=== PATIENT | male | born 1965 | race Two or more races ===

== ENCOUNTER 2020-12-26 13:08 | Outpatient (CLI) | payer MEDICAID ==
[2020-12-26 13:30] VITALS: BP 182/92
--- NOTE | 2020-12-26 19:29 | Consultation ---
DATE OF CONSULTATION: 12/26/2020 GASTROENTEROLOGY CONSULTATION CONSULTING PHYSICIAN: Slade Parrish MD. CHIEF COMPLAINT: Referral for constipation. PAST MEDICAL HISTORY: 1. GERD. 2. End-stage renal disease, on hemodialysis. 3. Coronary artery disease and [place]. 4. Hypercholesterolemia. 5. Asthma. 6. Hypertension. ALLERGIES: No known allergies. MEDICATIONS: Please see medication reconciliation list. SOCIAL HISTORY: The patient denies any tobacco, alcohol, or drug abuse. FAMILY HISTORY: No family history of GI malignancies. REVIEW OF SYSTEMS: Last colonoscopy was a year ago and according to the patient is negative. PHYSICAL EXAMINATION: VITAL SIGNS: Temperature 97.4, blood pressure 182/92, pulse 86 ,respirations 20. HEENT: Normocephalic and atraumatic. Sclerae are anicteric. NECK: Supple. No evidence of obvious lymphadenopathy. CARDIOVASCULAR: Regular rate and rhythm. Plus S1-S2. LUNGS: Decreased breath sounds bilaterally based on the supine exam. ABDOMEN: Soft, nontender. No rebound. No guarding. No peritoneal sign. EXTREMITIES: No cyanosis, no clubbing, no edema. ASSESSMENT AND PLAN: This is a 55-year-old male with chronic constipation, not responding to medication including Colace, MiraLAX. According to the patient, he has hard time having a bowel movement and makes him very uncomfortable. The patient had a colonoscopy according to him about a year ago, which we do not have the report and according to him everything was normal. Our plan will be to start the patient on Trulance 3 mg p.o. daily. The patient was given a prescription and also . The patient was told to bring the copy of his colonoscopy from the he has done and come back in a month or 2 for followup. Slade Parrish M.D. DR: SHARIF JOB#: [id number] CC:
[2020-12-30] MEDS ORDERED: LABETALOL HCL200 MG ORAL (12:27)
[2020-12-30] MEDS ORDERED: ADALAT CC30 MG ORAL (12:27)
[2020-12-30] MEDS ORDERED: TERBINAFINE HC250 MG PO (12:27)
[2020-12-30] MEDS ORDERED: CLONIDINE HCL0.1 MG PO (12:27)
[2020-12-30] MEDS ORDERED: CALCITRIOL0.25 MCG PO (12:27)
[2020-12-30] MEDS ORDERED: LACTULOSE20 GM/301 ORAL (12:27)
[2020-12-30] MEDS ORDERED: DOK100 M1 PO (12:27)
[2020-12-30] MEDS ORDERED: ASPIRIN EC81 MG ORAL (12:27)
[2020-12-30] MEDS ORDERED: ISOSORBIDE MONO60 M1 PO (12:27)
[2020-12-30] MEDS ORDERED: ATORVASTATIN CA40 MG ORAL (12:27)
[2020-12-30] MEDS ORDERED: LOSARTAN POTASS50 MG ORAL (12:27)
[2020-12-30] MEDS ORDERED: CALCIUM 500 +1 EAC3 PO (12:27)
[2020-12-30] MEDS ORDERED: TRAZODONE HCL50 MG ORAL (12:27)
[2020-12-30] MEDS ORDERED: PANTOPRAZOLE SO40 MG ORAL (12:27)
== END 2020-12-26 15:08 | disposition home or self-care (01) ==
LOC: PAN 13:08
DX: K59.09 Other constipation (principal); K21.9 Gastro-esophageal reflux disease without esophagitis; I12.0 Hypertensive chronic kidney disease with stage 5 chronic kidney disease or end stage renal disease; N18.6 End stage renal disease; Z99.2 Dependence on renal dialysis; I25.10 Atherosclerotic heart disease of native coronary artery without angina pectoris; I25.2 Old myocardial infarction; E78.00 Pure hypercholesterolemia, unspecified; J45.909 Unspecified asthma, uncomplicated
CPT/HCPCS: 99203

== ENCOUNTER 2021-01-14 09:57 | Outpatient (CLI) | payer MEDICAID ==
[~2021-01-14 09:57] MED LIST: ADALAT CC30 MG ORAL; ASPIRIN EC81 MG ORAL; ATORVASTATIN CA40 MG ORAL; CALCITRIOL0.25 MCG PO; CALCIUM 500 +1 EAC3 PO; CLONIDINE HCL0.1 MG PO; DOK100 M1 PO; ISOSORBIDE MONO60 M1 PO; LABETALOL HCL200 MG ORAL; LACTULOSE20 GM/301 ORAL; LOSARTAN POTASS50 MG ORAL; PANTOPRAZOLE SO40 MG ORAL; TERBINAFINE HC250 MG PO; TRAZODONE HCL50 MG ORAL
[2021-01-14 10:16] VITALS: BP 151/84
== END 2021-01-14 13:02 | disposition home or self-care (01) ==
LOC: PAN 09:57
DX: R10.9 Unspecified abdominal pain (principal)
CPT/HCPCS: 99212